=== PATIENT | male | born 1980 | race African-American/Black ===

== ENCOUNTER 2021-02-23 16:21 | Emergency (ER) | payer SELFPAY ==
[2021-02-23 19:10] LABS: SARS-COV-2 RT PCR NEGATIVE (NEGATIVE)
[2021-02-23] MEDS ORDERED: ONDANSETRON 4 MG/2 ML VIAL ONE (20:58)
[2021-02-23] MEDS ORDERED: NA CHLORIDE 0.9% 1,000 ML ONE (20:58)
[2021-02-23 21:03] LABS: Absolute Lymphocytes (CBC) 1.1 K/uL (0.7-4.9); Basophils % 0.5 % (0-1.3); Lymphocytes % 13.9 % (15.3-44.8); MPV 8.7 fL (7.6-11.3); RBC Red Blood Cell Count 4.77 M/uL (4.33-5.43)
--- NOTE | 2021-02-23 21:13 | EDPHYS ---
Physician Documentation [facility] Name: Arnold Huggins Age: 40 yrs Sex: Male : 1980 Arrival Date: 02/23/2021 Time: 16:22 Bed 23 Private MD: ED Physician Kalen Hicks HPI: 02/23 20:17 This 40 yrs old Black Male presents to ER via Ambulatory with complaints of r/o covid, jmm Fever, Vomiting/Diarrhea. 20:17 The patient presents to the emergency department with nausea, vomiting, diarrhea. jmm Onset: The symptoms/episode began/occurred acutely, 1 day(s) ago. Possible causes: unknown. The symptoms are aggravated by food , The symptoms are alleviated by nothing. This is a 40-year-old male with a history of asthma that presents emergency department with complaints of vomiting diarrhea beginning last night. Patient denies abdominal pain. Denies shortness of breath. . Historical: - Allergies: 17:32 No Known Allergies; kg - Home Meds: 17:32 None [Active]; kg - PMHx: 17:32 Asthma; kg - PSHx: 17:32 None; kg - Immunization history:: Adult Immunizations not up to date, Client reports having NOT received the Covid vaccine. Adult Immunizations up to date, Client reports having NOT received the Covid vaccine. - Social history:: Smoking status: Patient denies any tobacco usage or history of. ROS: 20:17 Constitutional: Negative for fever, chills, and weight loss, Cardiovascular: Negative jmm for chest pain, palpitations, and edema, Respiratory: Negative for shortness of breath, cough, wheezing, and pleuritic chest pain. 20:17 Abdomen/GI: Negative for abdominal pain, vomiting, diarrhea. 20:17 All other systems are negative. Exam: 20:17 Constitutional: This is a well developed, well nourished patient who is awake, alert, jmm and in no acute distress. Head/Face: atraumatic. Eyes: EOMI, no conjunctival erythema appreciated ENT: Moist Mucus Membranes Neck: Trachea midline, Supple Chest/axilla: Normal chest wall appearance and motion. Cardiovascular: Regular rate and rhythm. No edema appreciated Respiratory: Normal respirations, no respiratory distress appreciated 20:17 Skin: General appearance color normal MS/ Extremity: Moves all extremities, no obvious deformities appreciated, no edema noted to the lower extremities Neuro: Awake and alert, normal gait Psych: Behavior is normal, Mood is normal, Patient is cooperative and pleasant 20:17 Abdomen/GI: Inspection: abdomen appears normal, Bowel sounds: normal, Palpation: soft, nontender, in all quadrants. Vital Signs: 19:18 BP 134 / 93; Pulse 104; Resp 18; Pulse Ox 97% on R/A; ld1 20:58 BP 144 / 101; Pulse 94; Resp 18; Pulse Ox 95% on R/A; ld1 21:43 BP 138 / 90; Pulse 86; Resp 18; Pulse Ox 100% ; ld1 MDM: 20:17 Patient medically screened. [facility] 21:11 Data reviewed: vital signs, nurses notes. Counseling: I had a detailed discussion with [facility] the patient and/or guardian regarding: the historical points, exam findings, and any diagnostic results supporting the discharge/admit diagnosis, the need for outpatient follow up, to return to the emergency department if symptoms worsen or persist or if there are any questions or concerns that arise at home. 21:57 ED course: Patient is alert nontoxic in appearance in the ED Covid swab was negative. [facility] Labs mainly unremarkable. Patient requested to leave ER prior to complete evaluation.. 02/23 19:10 Order name: COVID-19/FLU A+B; Complete Time: 20:17 [facility] 02/23 20:17 Order name: Basic Metabolic Panel [facility] 02/23 20:17 Order name: CBC with Diff [facility] 02/23 20:17 Order name: Hepatic Function [facility] 02/23 20:17 Order name: Lipase [facility] 02/23 20:17 Order name: IV Saline Lock; Complete Time: 20:49 [facility] 02/23 20:18 Order name: Basic Metabolic Panel; Complete Time: 21:23 [facility] 02/23 20:18 Order name: Liver (Hepatic) Function; Complete Time: 21:23 [facility] 02/23 20:18 Order name: CBC with Automated Diff; Complete Time: 21:10 [facility] 02/23 20:18 Order name: Lipase; Complete Time: 21:23 [facility] 02/23 20:17 Order name: Labs collected and sent; Complete Time: 20:49 [facility] Administered Medications: 20:48 Drug: NS 0.9% 1000 ml Route: IV; Rate: 1 bolus; Site: right antecubital; ld1 21:42 Follow up: Response: No adverse reaction; IV Status: Completed infusion; IV Intake: ld1 1000ml 20:49 Drug: Zofran (Ondansetron) 4 mg Route: IVP; Site: right antecubital; ld1 21:00 Follow up: Response: No adverse reaction ld1 Disposition: 02/24 07:36 Co-signature as Attending Physician, Kalen Hicks MD. rn Disposition Summary: 02/23/21 21:12 Discharge Ordered Location: Home [facility] Condition: Stable [facility] Diagnosis - Vomiting [facility] Followup: [facility] - With: Private Physician - When: 2 - 3 days - Reason: Recheck today's complaints, Continuance of care, Re-evaluation by your physician Discharge Instructions: - Discharge Summary Sheet [facility] - Vomiting, Adult [facility] Forms: - Medication Reconciliation Form [facility] - Thank You Letter [facility] - Antibiotic Education [facility] - Prescription Opioid Use [facility] Prescriptions: - ondansetron 4 mg Oral tablet,disintegrating - place 1 tablet by TRANSLINGUAL route 3 times per day; 20 tablet; Refills: 0, [facility] Product Selection Permitted Signatures: Dispatcher [employer] EDMS Jonas Dempsey PA PA [facility] Kalen Hicks MD MD rn Dibbern, Lauren, RN RN ld1 Tennille Colby, DERECK RN kg Corrections: (The following items were deleted from the chart) 02/23 18:15 17:57 CORONAVIRUS+MR.LAB.BRZ ordered. EDMS EDMS 18:15 17:58 Influenza Screen (A \T\ B)+BA.LAB.BRZ ordered. EDMS EDMS
--- NOTE | 2021-02-23 21:13 | ER ---
Nurse's Notes [facility] Name: Arnold Huggins Age: 40 yrs Sex: Male : 1980 Arrival Date: 02/23/2021 Time: 16:22 Bed 23 Private MD: Diagnosis: Vomiting Presentation: 02/23 17:28 Chief complaint: Patient states: Chills, fever, nausea, vomiting, diarrhea x 1 day. Pt kg stated, " I ate some chicken salad yesterday that didn't taste right so I thought it was food poison.". Coronavirus screen: Client denies travel out of the [place] in the last 14 days. At this time, unable to obtain information related to travel outside the [place] At this time, the client does not indicate any symptoms associated with coronavirus-19. Ebola Screen: Patient negative for fever greater than or equal to 101.5 degrees Fahrenheit, and additional compatible Ebola Virus Disease symptoms Patient denies exposure to infectious person. Patient denies travel to an Ebola-affected area in the 21 days before illness onset. Initial Sepsis Screen: Does the patient meet any 2 criteria? No. Patient's initial sepsis screen is negative. Does the patient have a suspected source of infection? No. Patient's initial sepsis screen is negative. Risk Assessment: Do you want to hurt yourself or someone else? Patient reports no desire to harm self or others. Onset of symptoms was February 22, 2021. 17:28 Method Of Arrival: Ambulatory kg 17:28 Acuity: ESSENCE 3 kg Triage Assessment: 17:34 General: Appears in no apparent distress. Behavior is calm, cooperative, appropriate kg for age, quiet. Pain: Complains of pain in Generalized. 21:43 GI: Reports lower abdominal pain. ld1 Historical: - Allergies: 17:32 No Known Allergies; kg - Home Meds: 17:32 None [Active]; kg - PMHx: 17:32 Asthma; kg - PSHx: 17:32 None; kg - Immunization history:: Adult Immunizations not up to date, Client reports having NOT received the Covid vaccine. Adult Immunizations up to date, Client reports having NOT received the Covid vaccine. - Social history:: Smoking status: Patient denies any tobacco usage or history of. Screenin:34 Abuse screen: Denies threats or abuse. Denies injuries from another. Nutritional kg screening: No deficits noted. Tuberculosis screening: No symptoms or risk factors identified. Fall Risk None identified. Assessment: 19:18 General: Appears in no apparent distress. comfortable, Behavior is calm, cooperative, ld1 appropriate for age. Pain: Denies pain. Neuro: Level of Consciousness is awake, alert, obeys commands, Oriented to person, place, time, situation. Cardiovascular: Capillary refill < 3 seconds Patient's skin is warm and dry. Respiratory: Airway is patent Respiratory effort is even, unlabored, Respiratory pattern is regular, symmetrical. GI: Abdomen is flat, non-distended. : No signs and/or symptoms were reported regarding the genitourinary system. EENT: No signs and/or symptoms were reported regarding the EENT system. Derm: No signs and/or symptoms reported regarding the dermatologic system. Musculoskeletal: No signs and/or symptoms reported regarding the musculoskeletal system. 20:58 Reassessment: Patient appears in no apparent distress at this time. Patient is alert, ld1 oriented x 3, equal unlabored respirations, skin warm/dry/pink. 21:43 Reassessment: Patient appears in no apparent distress at this time. No changes from ld1 previously documented assessment. Patient and/or family updated on plan of care and expected duration. Pain level reassessed. Vital Signs: 19:18 BP 134 / 93; Pulse 104; Resp 18; Pulse Ox 97% on R/A; ld1 20:58 BP 144 / 101; Pulse 94; Resp 18; Pulse Ox 95% on R/A; ld1 21:43 BP 138 / 90; Pulse 86; Resp 18; Pulse Ox 100% ; ld1 ED Course: 16:22 Patient arrived in ED. as 17:31 Triage completed. kg 17:34 Patient has correct armband on for positive identification. kg 19:13 Jonas Dempsey PA is PHCP. jm 19:13 Kalen Hicks MD is Attending Physician. [facility] 19:17 Toya Jimenez, DERECK is Primary Nurse. ld1 19:18 No provider procedures requiring assistance completed. ld1 20:57 Inserted saline lock: 20 gauge in right antecubital area, using aseptic technique. ld1 Blood collected. 21:43 Arm band placed on right wrist. ld1 21:43 IV discontinued, intact, bleeding controlled, No redness/swelling at site. ld1 Administered Medications: 20:48 Drug: NS 0.9% 1000 ml Route: IV; Rate: 1 bolus; Site: right antecubital; ld1 21:42 Follow up: Response: No adverse reaction; IV Status: Completed infusion; IV Intake: ld1 1000ml 20:49 Drug: Zofran (Ondansetron) 4 mg Route: IVP; Site: right antecubital; ld1 21:00 Follow up: Response: No adverse reaction ld1 Intake: 21:42 IV: 1000ml; Total: 1000ml. ld1 Outcome: 21:12 Discharge ordered by . jose 21:43 Discharged to home ambulatory. ld1 21:43 Condition: stable 21:43 Discharge instructions given to patient, Instructed on discharge instructions, follow up and referral plans. medication usage, Demonstrated understanding of instructions, follow-up care, medications, Prescriptions given X 1. 21:43 Patient left the ED. ld1 Signatures: Jonas Dempsey PA PA jmm Martinez, Amelia as Dibbern, Lauren, RN RN ld1 Tennille Colby RN RN kg
[2021-02-23 21:15] LABS: ALT/SGPT 36 U/L (12-78); AST/SGOT 19 U/L (15-37); Albumin 3.9 g/dL (3.4-5.0); Alkaline Phosphatase 92 U/L (45-117); BUN Blood Urea Nitrogen 10 mg/dL (7-18); Bicarbonate 32 mmol/L (21-32); Bilirubin Direct 0.2 mg/dL (0-0.2); Bilirubin Total 0.9 mg/dL (0.2-1.0); Glucose Level 110 mg/dL (74-106); Lipase 105 U/L (73-393); Potassium 3.3 mmol/L (3.5-5.1); Protein, Total 8.5 g/dL (6.4-8.2); Sodium Level 140 mmol/L (136-145)
[2021-02-25 03:05] VITALS: BP 138/90; O2SAT 100
== END 2021-02-23 21:43 | disposition home or self-care (01) ==
LOC: ER 16:21
DX: R11.10 Vomiting, unspecified (principal); Z20.822 Contact with and (suspected) exposure to COVID-19; J45.909 Unspecified asthma, uncomplicated
CPT/HCPCS: 0240U; 36415; 80048; 80076; 83690; 85025; J2405; J7030